=== PATIENT | male | born 1950 | race Caucasian/White ===

== ENCOUNTER → 2018-06-10 19:04 | Outpatient (CLI) | payer MEDICARE | END | disposition home or self-care (01) | LOC: D.LABREF 19:04 | DX: N39.0 Urinary tract infection, site not specified (principal); R31.9 Hematuria, unspecified ==

== ENCOUNTER → 2018-06-24 14:42 | Outpatient (CLI) | payer MEDICARE, BC | END | disposition home or self-care (01) | LOC: D.CT 14:30 | DX: R31.21 Asymptomatic microscopic hematuria (principal) ==

== ENCOUNTER → 2018-07-08 12:29 | Outpatient (CLI) | payer MEDICARE, BC ==
[~2018-07-08 12:29] MED LIST: ALEVE220 MG PO; FISH OIL 1,0001 CA1 PO; GLUCOSAMINE/CHONDROI PO; POTASSIUM99 M1 PO; VITAMIN B-COMPLEX PO
== END | disposition home or self-care (01) ==
LOC: D.RAD 12:29
DX: N20.0 Calculus of kidney (principal)

== ENCOUNTER 2018-07-30 07:45 | Day surgery (SDC) | payer MEDICARE, BC ==
[2018-07-28 11:17] LABS: HEMATOCRIT 41.6 % (42.0-54.0); HEMOGLOBIN 14.6 g/dL (13.5-17.5); MCH 31.3 pg (26.0-34.0); MCHC 35.1 g/dL (31.0-37.0); MCV 89.3 fL (80.0-100.0); MEAN PLATELET VOLUME 8.7 fL (7.4-10.4); RBC 4.66 10x6/uL (4.20-6.10); RDW 13.7 % (11.5-14.5); WBC 5.3 10x3/uL (4.8-10.8)
[~2018-07-30] VITALS: Ht 182.9 cm; Wt 131.5 kg
[2018-07-30 08:50] VITALS: BP 149/93; Ht 182.9 cm; Wt 131.5 kg
--- NOTE | 2018-07-30 12:41 | NUR ---
1238 DOWN TO LITHOTRIPSY.
--- NOTE | 2018-07-30 13:24 | OP ---
PATIENT NAME: MECCA RAMOS MEDICAL RECORD: [id number] :46 LOCATION:.[facility] ADMISSION DATE: SURGEON: ZACH ALVAREZ MD DATE OF OPERATION: 07/30/2018 SURGEON: Zach Alvarez MD ANESTHESIA: TIVA by Hiro Boston CRNA. DIAGNOSES: 1. Post-infective gonorrheal urethral stricture. 2. Left renal stone 7 mm. PROCEDURES: Cystoscopy, direct vision internal urethrotomy of the urethral stricture, left retrograde pyelogram, left ureteral stent insertion 6-Peruvian x 26 cm without string attached. FINDINGS: Tight bulbar urethral stricture. Open prostatic urethra. Single ureteral orifices bilaterally with no tumors. On retrograde pyelogram, no hydronephrosis. Stone was not seen on our fluoroscopic equipment. ESTIMATED BLOOD LOSS: Minimal. CLINICAL HISTORY: This is a 67-year-old male, who was initially seen for microscopic hematuria. He also complains of a slow urinary stream. He had gonorrhea in the past and thus urethral stricture was one possible cause of a slow urinary stream. Urine cytology was negative for tumor cells and a CT scan of the abdomen and pelvis showed no renal tumors. However, renal stones were seen on the CT scan. He has a 2 mm stone in the right kidney and a 7 mm stone in the left kidney. Enlarged prostate was also seen. His IPSS score was 17. His quality of life score was 2. Thus, he was also consented for an UroLift procedure for BPH. He has had lithotripsy in the past for kidney stones. The plan is for cystoscopy, possible direct vision internal urethrotomy or UroLift procedure, and left ureteral stent insertion. Later in the day, we will perform left ESWL on the 7 mm left renal stone. HE IS ALLERGIC TO SULFA. He was given Ancef information security to the OR. DESCRIPTION OF PROCEDURE: The patient was given IV sedation. He was then placed into dorsal lithotomy position and prepped and draped. We went in with a 21-Peruvian cystoscope. 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 Male sounds had to be used to dilate the fossa navicularis to 26-Peruvian. Then, we could introduce the scope. Most of the penile urethra was normal except when we came to the bulbar urethral stricture which was a little more than a pinhole in diameter. A Sensor wire was placed through the urethral stricture and up into the bladder. We then switched to the optic urethrotome. Using a cold knife at 12 o'clock, we incised through the stricture zone. The stricture is about 1.5 cm in length. Finally, we were able to get into the prostatic urethra. The prostatic urethra actually shows no visible obstruction. Going into the bladder, he has single ureteral orifices and no bladder tumors were seen. We performed fluoroscopy and I could not see a visible renal stone. I then decided to perform a retrograde pyelogram. A 5-Peruvian open-ended ureteral catheter was placed into the left ureteral orifice and a retrograde pyelogram was performed. No hydroureteronephrosis was seen. We then inserted a Sensor wire up into the renal pelvis through the lumen of the open-ended ureteral catheter. Once the wire was in place, the ureteral catheter OPERATIVE REPORT [id number] MECCA RAMOS was removed entirely. Over the wire, we inserted a 6-Peruvian x 26 cm ureteral stent. As I did not want the stent to be pulled inadvertently when we removed the Mejias catheter in the future, I did not leave a string on the stent. Once the stent was in correct position, the wire was withdrawn entirely. The proximal end was seen to coil within the renal pelvis. The distal end was pushed into the bladder using a pusher. Fluoroscopy confirmed that the stent is in correct position. The wire for the ureteral catheter was entirely removed. We still had the wire going through the urethra into the bladder. The scope was removed. Over the wire going into the bladder, we inserted a 16-Peruvian lytton tip Mejias catheter. Once this catheter was fully in the bladder, then the balloon was inflated with 10 cc of sterile water. The wire was then withdrawn entirely. The catheter will stay for at least 1 week to allow the stricture incision zone to heal to the diameter of the catheter. TRANSINT:[id number] Voice Confirmation ID: [id number] DOCUMENT ID: [id number] ZACH ALVAREZ MD at 1324 CC: [id number] DICTATION DATE: 07/30/18 1220 DOCUMENTATION LIAISON: 07/30/18 1305 REG [facility] [address] [place] [address]
--- NOTE | 2018-07-30 13:25 | NUR ---
REC'D FROM LITHOTRIPSY PROCEDURE VIA WHELLCHAIR. TRANSFERRED SELF TO BED. FAMILY AT BEDSIDE. ORANGE JUICE BROUGHT TO PT.
--- NOTE | 2018-07-30 13:55 | NUR ---
FL TRAY BROUGHT TO PATIENT. FAMILY AT BEDSIDE.
--- NOTE | 2018-07-30 14:25 | NUR ---
TOLERATED FL TRAY. IV DC'D WITH CATHETER INTACT. WRITTEN AND VERBAL DC INST. GIVEN TO PT. DEMONSTRATED TO PT AND SPOUSE THE TECHNIQUE OF EMPTYING ALBERTS CATHETER OR CHANGING TO LEG BAG. VERBALIZED UNDERSTANDING.
--- NOTE | 2018-07-30 15:05 | NUR ---
DC'D HOME WITH FAMILY VIA PRIVATE VEHICLE. TAKEN TO VEHICLE VIA WC. STAGLE AT TIME OF DC.
--- NOTE | 2018-07-31 10:20 | OP ---
PATIENT NAME: MECCA RAMOS MEDICAL RECORD: [id number] :48 LOCATION:[facility] ADMISSION DATE: SURGEON: ZACH ALVAREZ MD DATE OF OPERATION: 07/30/2018 SURGEON: Zach Alvarez MD ANESTHESIA: TIVA by Ely Dunlap CRNA DIAGNOSIS: A 7-mm left renal stone. PROCEDURE: Left ESWL times 3000 shocks. FINDINGS: Radiodense 7-mm left renal stone. BLOOD LOSS: None. CLINICAL HISTORY: This is a 67-year-old male who was found to have a 7-mm left renal stone and a 2-mm right renal stone on CT scan, which was performed for microscopic hematuria. Earlier today, he had a cystoscopy, DVIU, and left ureteral stent insertion. He comes now to have the left kidney stone treated with lithotripsy. Since he was already given IV antibiotics for his earlier procedure, no further antibiotics were given to him at this time. DESCRIPTION OF PROCEDURE: The patient was placed on the treatment table. Fluoroscopy revealed the stone to be present inferior to the stent coil. The stone was targeted in 2 planes. 3000 shocks were given to the stone and the stone was seen to break up. The patient will be coming back next week to have his Mejias catheter removed. He will also get a KUB. If the stone has gone on the KUB, then we can arrange for cystoscopy and stent removal. TRANSINT:[id number] Voice Confirmation ID: [id number] DOCUMENT ID: [id number] ZACH ALVAREZ MD at 1020 CC: [id number] DICTATION DATE: 07/30/18 1328 EVS ATTENDANT: 07/30/18 1545 [facility] 07/30/[address] [address]
== END 2018-07-30 15:05 | disposition home or self-care (01) ==
LOC: D.OPS 07:45 → D.PAN 09:30 → D.OPS 09:30 → D.PAN 09:45 → D.OPS 09:45
PROVIDERS: Anesthesiology
DX: N20.0 Calculus of kidney (principal); Z01.812 Encounter for preprocedural laboratory examination

== ENCOUNTER → 2018-08-07 11:09 | Outpatient (CLI) | payer MEDICARE, BC ==
[2018-07-30 08:50] VITALS: BMI 39.4
[~2018-08-07 11:09] MED LIST changes: +FLOMAX0.4 MG PO
== END | disposition home or self-care (01) ==
LOC: D.RAD 11:09
DX: N20.0 Calculus of kidney (principal)

== ENCOUNTER 2018-08-18 05:34 | Day surgery (SDC) | payer MEDICARE, BC ==
[~2018-08-18] VITALS: Ht 182.9 cm; Wt 133.8 kg
[~2018-08-18 05:34] MED LIST changes: -FLOMAX0.4 MG PO
[2018-08-18 05:50] LABS: HEMATOCRIT 41.1 % (42.0-54.0); MCH 30.8 pg (26.0-34.0); MCHC 34.1 g/dL (31.0-37.0); MCV 90.3 fL (80.0-100.0); MEAN PLATELET VOLUME 8.8 fL (7.4-10.4); RBC 4.55 10x6/uL (4.20-6.10); RDW 13.6 % (11.5-14.5); WBC 5.1 10x3/uL (4.8-10.8)
[2018-08-18] MEDS ORDERED: FLOMAX0.4 MG PO (06:15)
[2018-08-18 06:44] VITALS: BP 142/89; Ht 182.9 cm; Wt 133.8 kg
--- NOTE | 2018-08-18 10:58 | OP ---
PATIENT NAME: MECCA RAMOS MEDICAL RECORD: [id number] :48 LOCATION:[facility] ADMISSION DATE: SURGEON: ZACH ALVAREZ MD DATE OF OPERATION: 08/18/2018 SURGEON: Zach Alvarez MD. ANESTHESIA: TIVA by Fernando King CRNA DIAGNOSIS: Retained left ureteral stent. PROCEDURES: Cystoscopy and removal of ureteral stent. FINDINGS: Fossa navicularis stricture. Bilateral obstructive lateral lobes of the prostate. Retained left ureteral stent. SPECIMENS: Left ureteral stent. ESTIMATED BLOOD LOSS: None. CLINICAL HISTORY: This is a 68-year-old man who had cystoscopy and DVIU of a post-gonococcal urethral stricture. At the same time, he had a left ureteral stent insertion, a left lithotripsy of a 7-mm left renal stone. When I saw him in the office, the Mejias catheter was removed. KUB done on that day showed no obvious remaining stone. He comes today to have the stent removed. Since he had a Mejias catheter in at that time, I did not leave a string on the stent to facilitate removal. HE IS ALLERGIC TO SULFA. He was given Ancef blender conveyor operator to the OR. DESCRIPTION OF PROCEDURE: The patient was given IV sedation. He was then placed into dorsal lithotomy position and prepped and draped. A 21-Equatorial Guinean cystoscope was attempted to pass into the urethra. We found that he had a stricture at the fossa navicularis, which prevented passage of the scope. I used male sounds to dilate the stricture to 24-Equatorial Guinean. Going into the penile urethra, the previous areas of resection or incision of the urethral strictures was seen and they are open. The prostate shows bilateral lateral lobe obstruction. Going into the bladder, we saw the ureteral stent. Grasping forceps were used and the stent was removed entirely. The bladder was emptied through the cystoscope sheath. I will see the patient in followup on a p.r.n. basis. There is a chance that his strictures may recur and that his urinary stream will slow down. At that point, I may have to repeat the DVIU or perform a UroLift procedure on his prostate. TRANSINT:[id number] Voice Confirmation ID: [id number] DOCUMENT ID: [id number] ZACH ALVAREZ MD at 1050 CC: [id number] DICTATION DATE: 08/18/18922 INSTRUCTIONAL SERVICES SPECIALIST: 08/18/18 1037 REG [facility] [address] [place] [id number]
--- NOTE | 2018-08-18 11:32 | NUR ---
[address] ALVAREZ. PROCEDURE FINDINGS DISCUSSED WITH & PATIENT. Jareth GOODEN R.N.
--- NOTE | 2018-08-18 11:42 | NUR ---
1040 DRESSED. AWAKE & ALERT. DISCHARGE INFORMATION INCLUDING: MED REC, [facility] D/C INSTRUCTIONS, & POST CYSTOSCOPY D/C INSTRUCTIONS REVIEWED WITH PATIENT & . QUESTIONS ADDRESSED & ANSWERED. TO PRIVATE CAR PER WHEELCHAIR BY VOLUNTEER. HOME WITH MRS. NOLAN. Jareth GOODEN R.N.
== END 2018-08-18 10:40 | disposition home or self-care (01) ==
LOC: D.OPS 05:34 → D.PAN 15:00 → D.OPS 15:00
PROVIDERS: Anesthesiology; ATTEND Urology
DX: N35.919 Unspecified urethral stricture, male, unspecified site (principal); N40.0 Benign prostatic hyperplasia without lower urinary tract symptoms; Z88.2 Allergy status to sulfonamides; Z01.812 Encounter for preprocedural laboratory examination